=== PATIENT | male | born 1990 | race Caucasian/White ===

== ENCOUNTER 2018-04-20 05:24 | Emergency (ER) | payer OTHER ==
[2018-04-20] MEDS ORDERED: DIPH,PERTUSS(ACELL),TET VAC/PF 0.5 ML DISP.SYRIN IM ONE (06:03)
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
[2018-04-20 07:16] VITALS: BP 108/67
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
== END 2018-04-20 07:14 | disposition home or self-care (01) ==
LOC: ED 05:24
DX: M25.572 Pain in left ankle and joints of left foot (principal); M25.571 Pain in right ankle and joints of right foot; M25.522 Pain in left elbow; T14.90XA Injury, unspecified, initial encounter; V29.9XXA Motorcycle rider (driver) (passenger) injured in unspecified traffic accident, initial encounter; Y92.9 Unspecified place or not applicable; Y93.9 Activity, unspecified; Y99.9 Unspecified external cause status
CPT/HCPCS: 73080; 90471; 90715

== ENCOUNTER 2018-04-20 15:48 | Emergency (ER) | payer SELFPAY ==
[2018-04-20 15:58] VITALS: BP 115/66
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
== END 2018-04-20 16:05 | disposition left against medical advice (07) ==
LOC: ED 15:48
DX: T14.90XA Injury, unspecified, initial encounter (principal); V29.9XXA Motorcycle rider (driver) (passenger) injured in unspecified traffic accident, initial encounter; Y92.9 Unspecified place or not applicable; Y93.9 Activity, unspecified; Y99.9 Unspecified external cause status; Z53.9 Procedure and treatment not carried out, unspecified reason
CPT/HCPCS: 99282